=== PATIENT | male | born 1950 | race Caucasian/White ===

== ENCOUNTER 2017-07-28 19:06 | Observation (INO) | payer BC, MEDICARE ==
[~2017-07-28] VITALS: Ht 180.3 cm; Wt 99.8 kg
[~2017-07-28 19:06] MED LIST: ASPIRIN 81MG TA81 MG PO; DIOVAN HCT 12.51 TAB PO; FLOMAX 0.4MG C0.4 MG PO; GABAPENTIN300 MG PO; PLAVIX75 MG PO; TOPROL XL 50MG50 MG PO; VALSARTAN AND H1 TA1 PO; VICODIN 5/500 T1 TAB PO; VITAMIN D1000 IU PO; ZOFRAN ODT4 MG PO
[2017-07-28 19:07] VITALS: BP 175/109
[2017-07-28 19:29] LABS: LYMPH % 17.5 % (10-50)
[2017-07-28 19:36] LABS: HEMOGLOBIN 18.9 g/dL (14.1-18.0)
--- NOTE | 2017-07-28 19:49 | Emergency Room Report ---
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 does not fell the same as when he had his [place]. pain is epigastirc area, no radiation. 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 N Clinical Suspician of Infection? N Mental Status: 1 - Regular (Normal Baseline) Sepsis Risk:Low Sepsis Risk Have you (or family members/close friends) recently traveled outside the [place]? N If Yes, where/when: Have you had exposure to infectious disease within the past month? N TB? Other? Specify: Acute onset of dull, mild midepigastric pain while at rest around 3915-9814 today; lasted about ten minutes, went away, then returned for five minutes, then resolved completely. Much milder than when he had an [place] in 2009 with three stents placed at [facility]. Has been seen by Dr. Sheikh and Dr. Dangelo in the past; pt of Dr. Burgos; amenable to admission at this facility with consultation to our cardiology service if needed. No SOB. No diaphoresis. Pain nonradiating. No n/v. No calf pain. Took asa and Plavix this AM. ALLERGIES Coded Allergies: Penicillins (03/20/17) azithromycin (03/20/17) morphine (03/20/17) Home Medications Reported Medications Metoprolol Succinate Xl (Toprol Xl) 50 MG PO DAILY Clopidogrel Bisulfate (Plavix) 75 MG PO DAILY ASPIRIN (Aspirin) 81 MG PO DAILY CHOLECALCIFEROL (VITAMIN D3) (Vitamin D3) 1,000 IUNITS PO DAILY VALSARTAN/HYDROCHLOROTHIAZIDE (Valsartan-Hctz 160-12.5 MG Tab) 1 TAB PO DAILY #30 History Medical History General CAD? No Angina: No [place]: Yes Hypertension? Yes Hyperlipidemia? No CHF? No DVT? No PE? No COPD? No Asthma? No Anemia? No GERD? No Gastric ulcers? No GI Bleed? No Hernia? No Thyroid Problems? No Hypothyroidism? No CVA? Yes Seizures? No Diabetes? No Renal Insuffiency? No End Stage Renal Disease? No UTI? Yes Stones? Yes GB Disease: No Nephritic Syndrome? No Asplenia? No Hepatitis? No Sickle Cell Disease? No Arthritis? No Migraines? No Cataracts? No Glaucoma? No MRSA? No HIV? No TB? No Anxiety? No Depression? No Cancer? No More? No Immunization Hx Ped.Immunizations UTD No DT/Tetanus NOT SURE Surgical Hx Previous Surgery?Y LITHOTRYPSY BASKET EXTRACTION BACK SURGERIES X 3 Family History Family Hx Diabetes Yes CAD No Hypertension Yes Hyperlipidemia No Cancer No TB No Social History Smoking Hx Smoker: Never Smoker Tobacco: No Packs/day N/A Are you/the child exposed to second-hand smoke: No Alcohol Alcohol: No Review of Systems All Other Systems Reviewed and Negative Cardiovascular see HPI Physical Exam Vital Signs Vital Signs Date Time Temp Pulse Resp B/P Pulse O2 O2 Flow FiO2 Ox Delivery Rate 07/28 1907 98.6 67 18 175/109 94 General Appearance normal appearance, WD/WN, no apparent distress Eye Exam - bilateral eye normal exam, bilateral eye PERRL, bilateral eye EOMI Neck normal inspection, non-tender, supple, full range of motion Respiratory Status Yes: trachea midline, chest symmetrical, non tender chest. No: respiratory distress, tender on palpation, use of accessory muscles, pain on inspiration, pain on expiration, productive cough, non productive cough. Lung Sounds bilateral: normal breath sounds, lungs clear. Cardiovascular normal exam, regular rate/rhythm, no peripheral edema, no gallop, no JVD, no murmur, no rub, normal peripheral pulses Gastrointestinal normal bowel sounds, normal exam, non tender, soft, no organomegaly, no pulsatile mass, no guarding, no rebound Extremities non-tender, normal range of motion, normal inspection, normal capillary refill, no calf tenderness, no pedal edema Strength 5 Upper Ext (L), 5 Upper Ext (R), 5 Lower Ext (L), 5 Lower Ext (R) Neurologic alert, normal exam, no motor/sensory deficits, oriented x 3 Glascow Coma Scale Glascow Coma Scale Response Value EYE response: 4 Spontaneously 4 MOTOR response: 6 OBEYS 6 VERBAL response: 5 Oriented & Converses 5 Total 15 Skin intact, normal color, warm/dry Medical Decision Making LABS/Meds/Orders Pt receiving controlled substance in ED? No Results/Orders Laboratory Tests 07/28/171899: Sodium 142, Potassium 4.6, Chloride 103, Carbon Dioxide 31, BUN 17, Creatinine 1.2, Estimated Creat Clear 84, Estimated GFR (MDRD) 61, Glucose 109 H, Calcium 9.4, Creatine Kinase 53, CK-MB (CK-2) Rel Index 0.9, CK and CKMB Interp < 0.5, Troponin I < 0.02, WBC 11.4 H, RBC 6.04, Hgb 18.9 *H, Hct 56.0 H, MCV 92.7, RDW 12.9, Plt Count 224, MPV 8.0, Gran % 68.4, Gran # 7.8, Lymphocytes % 17.5, Monocytes % 8.5, Eosinophils % 4.8, Basophils % 0.8, Lymphocytes # 2.0, Monocytes # 1.0, Eosinophils # 0.6 H, Basophils # 0.1, PUBS MCHC 33.8, MCH 31.3 H Current Medication Orders Sig/Daiana Start time Last Medication Dose Route Stop Time Status Admin Sodium Chloride 10 ML PRN PRN 07/28 1945 AC IV 07/29 1939 Aspirin 324 MG ONCE ONE 07/28 1930 DC 07/28 PO 07/28 Aspirin 0 .STK-MED ONE 07/28 1918 DC .ROUTE Orders Procedure Date/time Status IV SALINE LOCK 07/28 1940 Active ELECTROCARDIOGRAM REQUEST 07/28 1916 Active CHEST-PORTABLE 07/28 1916 Active CBC WITH AUTO DIFF 07/28 1916 Complete CARDIAC ENZYMES 07/28 1916 Complete BASIC METABOLIC PROFILE 07/28 1916 Complete CM/EKG CM/EKG EKG rate, NSR, rhythm, no evid. of ischemic chgs (Nonspecific tw changes V5V6 ), no ectopy, normal QRS, normal IA, normal EKG (NSR 63 ) XRAY/CT/US XRAY/CT/US XRAY chest XR interpretation by reviewed by me Xray Results abnormal, neg acute; some calcifications Consult MD Physician Consult Time Called 1957 Reason Admission Departure Departure Time of Disposition 2003 Disposition Still a Patient Clinical Impression Primary Impression: Chest pain Qualifiers: Chest pain type: unspecified Qualified Code: R07.9 - Chest pain, unspecified Condition STABLE Referrals Wiley Burgos MD (Family) ED Critical Care Critical Care No at 2005
--- NOTE | 2017-07-28 19:49 | Emergency Room Report ---
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 does not fell the same as when he had his [place]. pain is epigastirc area, no radiation. 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 N Clinical Suspician of Infection? N Mental Status: 1 - Regular (Normal Baseline) Sepsis Risk:Low Sepsis Risk Have you (or family members/close friends) recently traveled outside the [place]? N If Yes, where/when: Have you had exposure to infectious disease within the past month? N TB? Other? Specify: Acute onset of dull, mild midepigastric pain while at rest around [id number] today; lasted about ten minutes, went away, then returned for five minutes, then resolved completely. Much milder than when he had an [place] in 2009 with three stents placed at [facility]. Has been seen by Dr. Sheikh and Dr. Dangelo in the past; pt of Dr. Burgos; amenable to admission at this facility with consultation to our cardiology service if needed. No SOB. No diaphoresis. Pain nonradiating. No n/v. No calf pain. Took asa and Plavix this AM. ALLERGIES Coded Allergies: Penicillins (03/20/17) azithromycin (03/20/17) morphine (03/20/17) Home Medications Reported Medications Metoprolol Succinate Xl (Toprol Xl) 50 MG PO DAILY Clopidogrel Bisulfate (Plavix) 75 MG PO DAILY ASPIRIN (Aspirin) 81 MG PO DAILY CHOLECALCIFEROL (VITAMIN D3) (Vitamin D3) 1,000 IUNITS PO DAILY VALSARTAN/HYDROCHLOROTHIAZIDE (Valsartan-Hctz 160-12.5 MG Tab) 1 TAB PO DAILY #30 History Medical History General CAD? No Angina: No [place]: Yes Hypertension? Yes Hyperlipidemia? No CHF? No DVT? No PE? No COPD? No Asthma? No Anemia? No GERD? No Gastric ulcers? No GI Bleed? No Hernia? No Thyroid Problems? No Hypothyroidism? No CVA? Yes Seizures? No Diabetes? No Renal Insuffiency? No End Stage Renal Disease? No UTI? Yes Stones? Yes GB Disease: No Nephritic Syndrome? No Asplenia? No Hepatitis? No Sickle Cell Disease? No Arthritis? No Migraines? No Cataracts? No Glaucoma? No MRSA? No HIV? No TB? No Anxiety? No Depression? No Cancer? No More? No Immunization Hx Ped.Immunizations UTD No DT/Tetanus NOT SURE Surgical Hx Previous Surgery?Y LITHOTRYPSY BASKET EXTRACTION BACK SURGERIES X 3 Family History Family Hx Diabetes Yes CAD No Hypertension Yes Hyperlipidemia No Cancer No TB No Social History Smoking Hx Smoker: Never Smoker Tobacco: No Packs/day N/A Are you/the child exposed to second-hand smoke: No Alcohol Alcohol: No Review of Systems All Other Systems Reviewed and Negative Cardiovascular see HPI Physical Exam Vital Signs Vital Signs Date Time Temp Pulse Resp B/P Pulse O2 O2 Flow FiO2 Ox Delivery Rate 07/28 1907 98.6 67 18 175/109 94 General Appearance normal appearance, WD/WN, no apparent distress Eye Exam - bilateral eye normal exam, bilateral eye PERRL, bilateral eye EOMI Neck normal inspection, non-tender, supple, full range of motion Respiratory Status Yes: trachea midline, chest symmetrical, non tender chest. No: respiratory distress, tender on palpation, use of accessory muscles, pain on inspiration, pain on expiration, productive cough, non productive cough. Lung Sounds bilateral: normal breath sounds, lungs clear. Cardiovascular normal exam, regular rate/rhythm, no peripheral edema, no gallop, no JVD, no murmur, no rub, normal peripheral pulses Gastrointestinal normal bowel sounds, normal exam, non tender, soft, no organomegaly, no pulsatile mass, no guarding, no rebound Extremities non-tender, normal range of motion, normal inspection, normal capillary refill, no calf tenderness, no pedal edema Strength 5 Upper Ext (L), 5 Upper Ext (R), 5 Lower Ext (L), 5 Lower Ext (R) Neurologic alert, normal exam, no motor/sensory deficits, oriented x 3 Glascow Coma Scale Glascow Coma Scale Response Value EYE response: 4 Spontaneously 4 MOTOR response: 6 OBEYS 6 VERBAL response: 5 Oriented & Converses 5 Total 15 Skin intact, normal color, warm/dry Medical Decision Making LABS/Meds/Orders Pt receiving controlled substance in ED? No Results/Orders Laboratory Tests 07/28/171899: Sodium 142, Potassium 4.6, Chloride 103, Carbon Dioxide 31, BUN 17, Creatinine 1.2, Estimated Creat Clear 84, Estimated GFR (MDRD) 61, Glucose 109 H, Calcium 9.4, Creatine Kinase 53, CK-MB (CK-2) Rel Index 0.9, CK and CKMB Interp < 0.5, Troponin I < 0.02, WBC 11.4 H, RBC 6.04, Hgb 18.9 *H, Hct 56.0 H, MCV 92.7, RDW 12.9, Plt Count 224, MPV 8.0, Gran % 68.4, Gran # 7.8, Lymphocytes % 17.5, Monocytes % 8.5, Eosinophils % 4.8, Basophils % 0.8, Lymphocytes # 2.0, Monocytes # 1.0, Eosinophils # 0.6 H, Basophils # 0.1, PUBS MCHC 33.8, MCH 31.3 H Current Medication Orders Sig/Daiana Start time Last Medication Dose Route Stop Time Status Admin Sodium Chloride 10 ML PRN PRN 07/28 1945 AC IV 07/29 1939 Aspirin 324 MG ONCE ONE 07/28 1930 DC 07/28 PO 07/28 Aspirin 0 .STK-MED ONE 07/28 1918 DC .ROUTE Orders Procedure Date/time Status IV SALINE LOCK 07/28 1940 Active ELECTROCARDIOGRAM REQUEST 07/28 1916 Active CHEST-PORTABLE 07/28 1916 Active CBC WITH AUTO DIFF 07/28 1916 Complete CARDIAC ENZYMES 07/28 1916 Complete BASIC METABOLIC PROFILE 07/28 1916 Complete CM/EKG CM/EKG EKG rate, NSR, rhythm, no evid. of ischemic chgs (Nonspecific tw changes V5V6 ), no ectopy, normal QRS, normal [place], normal EKG (NSR 63 ) XRAY/CT/US XRAY/CT/US XRAY chest XR interpretation by reviewed by me Xray Results abnormal, neg acute; some calcifications Consult MD Physician Consult Time Called 1957 Reason Admission Departure Departure Time of Disposition 2003 Disposition Still a Patient Clinical Impression Primary Impression: Chest pain Qualifiers: Chest pain type: unspecified Qualified Code: R07.9 - Chest pain, unspecified Condition STABLE Referrals Wiley Burgos MD (Family) ED Critical Care Critical Care No at 2005
[2017-07-28 19:55] LABS: BUN 17 mg/dL (7-18)
[2017-07-28 19:56] LABS: GFR (ESTIMATED) 61 ML/MIN (>60)
[2017-07-28 21:12] VITALS: BP 126/81
[2017-07-28 22:12] VITALS: BP 152/98
--- NOTE | 2017-07-28 23:10 | RADIOLOGY REPORT PS360 ---
CHEST-PORTABLE HISTORY: CHEST PAIN ORDERING PHYSICIAN: Wiley Burgos MD PATIENT AGE: 67 years COMPARISON: 12/11/2012 FINDINGS: The cardiomediastinal silhouette and pulmonary vascularity are within normal limits. The lungs are clear without infiltrates, suspicious nodules, or pleural effusions. No acute bony abnormalities. A bone plate is present over the lower cervical spine IMPRESSION: No change with no acute finding
[2017-07-28 23:57] VITALS: BP 134/93
[2017-07-29] VITALS (15 sets, daily range): BP systolic 94–135; BP diastolic 48–83
[2017-07-29 06:59] LABS: LYMPH # 1.7 K/mm3 (0.7-4.5); LYMPH % 18.1 % (10-50)
--- NOTE | 2017-07-29 07:28 | PHARMACY CLINIC NOTE ---
Patient Demographics Patient Demographics Admission date: 07/28/17 Date: 07/29/17 Time: 07 Allergies Coded Allergies: Penicillins (07/28/17) azithromycin (07/28/17) morphine (07/28/17) HEIGHT- FT: 5 IN: 11.00 K.792 VTE General Information Labs: Laboratory Tests 07/28 1900 Hematology Hgb (14.1 - 18.0 g/dL) 18.9 *H Hct (42.0 - 52.0 %) 56.0 H Plt Count (142 - 424 K/mm3) 224 Disclaimer The following section includes nursing documentation that has been pulled in for pharmacy review. Patient's VTE score: 3 Patient's VTE Risk: LOW RISK Clinical trial participant? No VTE prophylaxis [id number] VTE prophylaxis ordered? Yes Type of prophylaxis/treatment: MARIANELA at 0727
--- NOTE | 2017-07-29 07:57 | HISTORY AND PHYSICAL REPORT ---
History and Physical ([facility]) Date of admission: 07/28/17 Chief complaint: chest pain History: History of Present Illness: Mr Spears is a 67 year old male with a history of HTN, Ischemic stroke, Lumbar and cervical DD, CAD, Kidney stones, and statin induced myopthy who was brought to [facility] ER via ambulance after acute onset of dull, mild midepigastric pain while at rest around [id number] yesterday. The discomfort lasted about ten minutes, went away, then returned for five minutes, then resolved completely. The pain was much milder than when he had an [place] in 2009 with three stents placed at [facility]. He has been seen by Dr. Sheikh and Dr. Dangelo in the past. Patient denies assiciated SOB, diaphoresis, nausea/vomiting, palpitations, and radiation. He does have allergies and has a cough. He also denies leg pain. He did take his plavix and ASA this AM. Second TI was slightly elevated and he was admitted for further cardiac work-up. He was amenable to admission at this facility with consultation to our cardiology service if needed. Past Medical History: Medical History: CAD? Yes Angina: No LA: Yes Hypertension? Yes Hyperlipidemia? Yes CHF? No DVT? No PE? No COPD? No Asthma? No Anemia? No GERD? No Gastric ulcers? No GI Bleed? No Hernia? No Thyroid Problems? No Hypothyroidism? No CVA? Yes Seizures? No Diabetes? No Renal Insuffiency? No UTI? Yes Stones? Yes GB Disease: No Nephritic Syndrome? No Asplenia? No Hepatitis? No Sickle Cell Disease? No Arthritis? No Migraines? No Cataracts? No Glaucoma? No MRSA? No HIV? No TB? No Anxiety? No Depression? No Cancer? No More? No Additional hx: statin induced myopathy Surgical history: Previous Surgery?Y LITHOTRYPSY BASKET EXTRACTION BACK SURGERIES X 3 Medications: Reported Medications Metoprolol Succinate Xl (Toprol Xl) 100 MG PO DAILY VALSARTAN/HYDROCHLOROTHIAZIDE (Valsartan-Hctz 160-12.5 MG Tab) 1 TAB PO DAILY #30 TAB Clopidogrel Bisulfate (Plavix) 75 MG PO DAILY ASPIRIN (Aspirin) 81 MG PO DAILY CHOLECALCIFEROL (VITAMIN D3) (Vitamin D3) 1,000 IUNITS PO DAILY Allergies: Coded Allergies: Penicillins (07/28/17) azithromycin (07/28/17) morphine (07/28/17) Family History: Family history: Postive for: DM, HTN. Negative for: CAD. Additional family history: Father had Parkinson's; Mother had leukemia Social History: Smoking Hx Tobacco: No Smoker: Former Smoker Type: Pipe Packs/day: N/A Are you exposed to second hand No Alcohol: Alcohol: No Hx of Drug Use: Drug Use? No Patien't marital status is: Patient's support system is: excellent Review of Systems: Constitutional No: fatigue, weak. ENT No: ear ache, sore throat. Cardiovascular Positive for: chest pain. No: edema, palpitations. Respiratory Positive for: non-productive. No: shortness of air, pneumonia, productive cough (sputum). GI Positive for: abdominal pain (epigastrium). No: GERD, constipation, diarrhea, melena, nausea, vomitting. (female) No: hematuria. Neurological No: confusion, dizziness, headache, seizure, syncope. Musculoskeletal Positive for: joint pain (bilateral knees). Physical Exam: Vital signs: 1ST Vital Signs Result Date Time Pulse Ox 94 07/28 1907 B/P 175/109 07/28 1907 Temp 98.6 07/28 1907 Pulse 67 07/28 1907 Resp 18 07/28 1907 O2 Delivery ROOM AIR 07/28 2112 Exam: General appearance: alert, no acute distress, having ECHO done Eyes: anicteric ENT: mucous membranes moist, pharynx normal Neck: no carotid bruit, lymphadenopathy (absent), thyroid (normal) Cardiovascular: regular rate & rhythm Respiratory: few fine bibasilar crackles ABD: soft, no tenderness, no guarding, no organomegaly, bowel sounds present Extremities: no peripheral edema, no calf tenderness Neuro: alert, oriented, speech clear Lab data: Labs: Laboratory Tests 07/29/17 0614: Sodium 141, Potassium 3.6, Chloride 105, Carbon Dioxide 29, BUN 16, Creatinine 1.1, Estimated Creat Clear 93, Estimated GFR (MDRD) 67, Glucose 96, Calcium 8.6 07/29/17 0100: Troponin I 0.14 H 07/28/17 2204: Troponin I 0.12 H 07/28/17 1900: Sodium 142, Potassium 4.6, Chloride 103, Carbon Dioxide 31, BUN 17, Creatinine 1.2, Estimated Creat Clear 84, Estimated GFR (MDRD) 61, Glucose 109 H, Calcium 9.4, Creatine Kinase 53, CK-MB (CK-2) Rel Index 0.9, CK and CKMB Interp < 0.5, Troponin I < 0.02, WBC 11.4 H, RBC 6.04, Hgb 18.9 *H, Hct 56.0 H, MCV 92.7, RDW 12.9, Plt Count 224, MPV 8.0, Gran % 68.4, Gran # 7.8, Lymphocytes % 17.5, Monocytes % 8.5, Eosinophils % 4.8, Basophils % 0.8, Lymphocytes # 2.0, Monocytes # 1.0, Eosinophils # 0.6 H, Basophils # 0.1, PUBS MCHC 33.8, MCH 31.3 H Radiology results: Results: CXR 07/28/17 IMPRESSION: No change with no acute finding Diagnosis(es): 1. Chest pain 2. CAD (coronary artery disease) 3. History of kidney stones 4. HTN (hypertension) Plan: cardiology has been consulted for cardiac workup (Emy Seo APRN) Diagnosis(es): 1. Epigastric abdominal pain Status: Acute 2. Chest pain Status: Acute 3. CAD (coronary artery disease) Status: Chronic 4. HTN (hypertension) Status: Chronic 5. History of kidney stones Status: Chronic Plan: Patient seen and agree with above note, will add liver function and amylase/ lipase to blood in lab, no echo results yet, cardiology consultation pending. (Wiley Burgos MD) at 0757 at 0841
[2017-07-29 09:07] LABS: BILIRUBIN, INDIRECT 0.5 mg/dL (0-0.9)
--- NOTE | 2017-07-29 09:49 | CONSULT NOTE ---
Standard Demographics Patient Demo Date of Consultation: 07/29/17 Referring Provider: Wiley Burgos MD Reason for Consultation: chest pain PRIMARY DIAGNOSIS: CHEST PAIN Problem list Problem list: Non-STEMI USA CAD HTN HLD Abnormal EKG History of present illness: History of present illness: Pt presented to the ER via ambulance with CP. The patient reports that he was lying in bed when he had sudden onset of substernal pressure. this did not radiate. there were no associated symptom. pt reports having a previous DE in 2009 and the pressure startled him. he woke his up and called EMS. Pain lasted about 5 min. nothing worsened the pain. he states he had no CP prior to this. Moderate to severe in intensity. His troponin did elevate consistent with a non-STEMI. Denies fevers, chills, n/v/d, pnd or orthopnea. No SOB or edema. Past Medical History: General: Hypertension Yes CVA Yes Seizures No TB No COPD No Asthma No Diabetes No Angina No DE Yes Hyperlipidemia Yes Urinary Yes Cancer No Rheumatic H.D. No Ulcers No MRSA No GB Disease No Other HX: KIDNEY STONES X7 Additional hx statin induced myopathy Past Surgical HX: Previous Surgery?Y LITHOTRYPSY BASKET EXTRACTION BACK SURGERIES X 3 Allergies Coded Allergies: Penicillins (07/28/17) azithromycin (07/28/17) morphine (07/28/17) Home medications: Reported Medications Metoprolol Succinate Xl (Toprol Xl) 100 MG PO DAILY VALSARTAN/HYDROCHLOROTHIAZIDE (Valsartan-Hctz 160-12.5 MG Tab) 1 TAB PO DAILY #30 TAB Clopidogrel Bisulfate (Plavix) 75 MG PO DAILY ASPIRIN (Aspirin) 81 MG PO DAILY CHOLECALCIFEROL (VITAMIN D3) (Vitamin D3) 1,000 IUNITS PO DAILY Current Medications: Current Medications Aspirin 81 MG DAILY PO Clopidogrel Bisulfate 75 MG DAILY PO Metoprolol Succinate 50 MG DAILY PO Sodium Chloride 10 ML PRN PRN IV Temazepam 15 MG QHSP PRN PO Sodium Chloride 10 ML PRN PRN IV Aspirin 324 MG ONCE ONE PO (DC) Aspirin 0 .STK-MED ONE .ROUTE (DC) Immunization HX Ped.Immunizations UTD No DT/Tetanus Unknown Flu 2015-FSN Pneumonia RECEIVED IN PAST TB Test in last year No Family history Family HX Diabetes Yes CAD No Hypertension Yes Hyperlipidemia No Cancer No TB No Social Hx: Smoking HX Tobacco No Type PIPE Packs/day N/A Are you/the child exposed to second-hand smoke: No Alcohol Alcohol: No Hx of Drug Use Drug Use? No Patien't marital status is Patient's support system is good Review of systems: Constitutional No: chills, diaphoresis, fever, malaise, weakness, other. Eyes No: blindness, blurred vision, drainage, decreased acuity, foreign body sensation, inflammation, pain, photophobia, previous injury, shadows, tunnel vision, vision change, contact lenses, glasses, other. Ears, Nose, Mouth, Throat No ear pain, No ear discharge, No nose pain, No drooling/excessive saliva, No nose discharge, No nose congestion, No epistaxis, No mouth pain, No mouth swelling, No tongue swelling, No dental caries, No loose teeth, No missing teeth , No throat pain, No throat swelling, No other Respiratory No: cough, orthopnea, shortness of breath, SOB with excertion, SOB at rest, stridor, wheezing, other. Cardiovascular see HPI, chest pain, No edema, No palpitations, No syncope, No other Gastrointestinal/Abdominal No abdomen distended, No abdominal pain, No blood streaked bowels, No constipated, No diarrhea, No difficulty swallowing, No nausea, No poor appetite, No poor fluid intake, No rectal bleeding, No vomiting, No other Genitourinary No: discharge, abnormal vaginal bleeding, normal menstrual period, vaginal discharge, dysuria, frequency, hesitancy, hematuria, dyspareunia, pain, penis pain, pelvic pain, scrotal/testicular pain, hx stds, genital lesions, other, , labia tenderness, penis tenderness, scrotal tenderness. Musculoskeletal No: back pain, gout, joint pain, joint swelling, muscle pain, muscle stiffness, neck pain, other. Skin No: change in color, change in hair/nails, dryness, lesions, lumps, rash, other. Neurological No: headache, numbness, tingling, tremors, weakness, parasthesia, seizure disorder. Psychiatric No: anxious, depressed, other, withdrawn. Exam: Admission Vital Signs: 1ST Vital Signs Result Date Time Pulse Ox 94 07/28 1907 B/P 175/109 07/28 1907 Temp 98.6 07/28 1907 Pulse 67 07/28 1907 Resp 18 07/28 1907 O2 Delivery ROOM AIR 07/28 2112 Last Vital Signs: Vital Signs Result Date Time Pulse Ox 94 07/29 750 B/P 118/49 07/29 750 O2 Delivery ROOM AIR 07/29 750 Temp 98.6 07/29 750 Pulse 57 07/29 750 Resp 16 07/29 750 Exam General appearance: normal appearance, alert, active, awake, face symmetric, no acute distress, well-developed, well-nourished Eyes: normal exam, anicteric, conjunctiva clear, pupils reactive to light, PERRLA, sclera clear ENT: normal exam, mucous membranes moist, nose normal, pharynx normal Neck: normal inspection, non-tender, no carotid bruit, no JVD, full range of motion, range of motion, supple Cardiovascular: normal exam, no JVD, no ectopics, normal sinus rhythm, PMI normal, regular rate & rhythm, no murmur, normal peripheral pulses, no peripheral edema Respiratory: normal exam, aerating well, clear to auscultation, good air movement, normal breath sounds, no respiratory distress ABD: normal exam, non-distended, normal bowel sounds, no rebound, soft, no tenderness, no guarding, no organomegaly, no palpable mass Extremities: normal exam, full range of motion, moves all, normal capillary refill, no peripheral edema, femoral pulses (present), warm, pedal pulses ( present), no pedal edema Musculoskeletal: normal exam, equal muscle strength, motor intact, normal gait, sensation intact Skin: normal exam, dry, intact, normal color, no gross abnormalities, warm Neuro: normal exam, 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, 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, intact, no deficit, normal mood/affect, oriented, speech clear Laboratory data: Laboratory Tests 07/29/17 0614: Sodium 141, Potassium 3.6, Chloride 105, Carbon Dioxide 29, BUN 16, Creatinine 1.1, Estimated Creat Clear 93, Estimated GFR (MDRD) 67, Glucose 96, Calcium 8.6, WBC 9.3, RBC 5.42, Hgb 17.0, Hct 49.9, MCV 92.0, RDW 13.0, Plt Count 229, MPV 7.3 L, Gran % 69.6, Gran # 6.5, Lymphocytes % 18.1, Monocytes % 7.0, Eosinophils % 4.8, Basophils % 0.4, Lymphocytes # 1.7, Monocytes # 0.7, Eosinophils # 0.5 H, Basophils # 0.0, PUBS MCHC 33.9, MCH 31.2 07/29/17 0100: Troponin I 0.14 H 07/28/17 2204: Troponin I 0.12 H 07/28/171899: Sodium 142, Potassium 4.6, Chloride 103, Carbon Dioxide 31, BUN 17, Creatinine 1.2, Estimated Creat Clear 84, Estimated GFR (MDRD) 61, Glucose 109 H, Calcium 9.4, Creatine Kinase 53, CK-MB (CK-2) Rel Index 0.9, CK and CKMB Interp < 0.5, Troponin I < 0.02 07/28/171899: Total Bilirubin 0.6, Direct Bilirubin 0.10, Indirect Bilirubin 0.50, AST 11 L, ALT 23, Alkaline Phosphatase 92, Total Protein 6.5, Albumin 3.5, Amylase 38, Lipase 80, WBC 11.4 H, RBC 6.04, Hgb 18.9 *H, Hct 56.0 H, MCV 92.7, RDW 12.9, Plt Count 224, MPV 8.0, Gran % 68.4, Gran # 7.8, Lymphocytes % 17.5, Monocytes % 8.5, Eosinophils % 4.8, Basophils % 0.8, Lymphocytes # 2.0, Monocytes # 1.0, Eosinophils # 0.6 H, Basophils # 0.1, PUBS MCHC 33.8, MCH 31.3 H Additional information: EKG is SR with high lateral ST/TWA. Plan: Assessment: Impession List: 1. non-STEMI 2. USA 3. CAD 4. HTN 5. HLD 6. Abnormal EKG Recommendations: Plan: 1. Pt admitted with CP consistent with USA. He had an elevation in his troponin consistent with a non-STEMI. Pt has had a previous DE with stenting. Has HTN and HLD. EKG is abnormal. Will plan to proceed with LHC with R radial access to evaluate CAD. 2. Pt educated on the risks and benefits of LHC with R radial and groin access. pt verbalized understanding and is agreeable in proceeding with LHC. 3. NPO 4. CAD is present. 5. BP is well controlled. 6. LDL goal is < 70. Will get a lipid panel. 7. Echo to evaluate LV function 8. Further recommendations pending the patient's response to treatment and the results of [facility] today. Thank you for the opportunity to help participate in the care of this patient. at 0948
--- NOTE | 2017-07-29 13:17 | RADIOLOGY REPORT PS360 ---
CARDIAC CATHETERIZATION DATE OF CATHETERIZATION:07/29/2017 11:17 AM PROCEDURES: 1. Left heart catheterization 2. Left ventriculogram 3. Selective coronary angiogram 4. Drug-eluting stent deployment to the mid LAD 5. Drug-eluting stent deployment to the ramus intermedius INDICATION FOR TEST: 1. Coronary artery disease 2. Acute non-ST elevation myocardial infarction Informed consent was obtained prior to the procedure. COMPLICATIONS: None ESTIMATED BLOOD LOSS: Less than 10 ml. TECHNIQUE: One percent lidocaine used to anesthetize the right anterior aspect of the wrist. The right radial artery was accessed via the Seldinger technique. A 6 Chinese sheath was placed in the right radial artery. 2.5 mg of verapamil, 800 mcg of nitroglycerin and 5000 U Heparin were given through the arterial sheath. The trap catheter catheter was used to perform left heart catheterization left ventriculogram and selective coronary angiography. At the end of the diagnostic angiogram and additional 5000 units of heparin was administered intravenously creating an ACT out of range. An [employer] left guide catheter was used intubate the left main artery and a choice PT extra-support wire was placed into the distal LAD. A 2.25 x 26 mm resolute Daron stent was deployed at 24 marimar reducing the severe mid LAD stenosis to 0%. An additional 2.75 x 8 mm resolute Daron stent was placed proximal to this stent yet still in the mid segment and deployed at 22 marimar. IVETTE-3 flow was present down the LAD before and after the procedure. Following this an additional choice PT wire extra-support was placed in the high ramus intermedius and a 2.5 x 18 mm resolute Clifford stent deployed at 22 marimar reducing the severe stenosis to 0%. IVETTE-3 flow was present down the ramus intermedius before and after the procedure. Excellent angiographic results were obtained with no encroachment or impingement of the ostial proximal LAD. At the end of the procedure repeat ACT was measured at out of range therefore the apparatus was removed the sheath was removed good hemostasis was achieved using TR banding patient was transferred to the postop holding area in stable condition ANGIOGRAPHIC RESULTS: 1. The left main artery normal 2. The left anterior descending artery is proximally normal and then has mid vessel 30% stenoses with an additional eccentric 80% stenosis immediately after the first diagonal artery followed by an 80-90% stenosis distal to the third diagonal artery. 3. The ramus intermedius has a proximal 80 and 99% stenosis 4. The circumflex artery is nondominant yet still giving rise to a large obtuse marginal artery. This vessel has 60 and 70% mid vessel stenoses 5. The right coronary artery is a dominant vessel and has proximal 30% stenoses and a 70-80% and a 2.25 mm mid posterior descending artery which is immediately distal to the widely patent PDA stent 6. The AVILA ventriculogram reveals mild left ventricular dilatation ejection fraction 40% with anterior wall hypokinesis 7. The left ventricular end-diastolic pressure 20 mmHg IMPRESSION: 1. Coronary artery disease as described above 2. Successful drug-eluting stent deployment to the mid LAD with 2 drug-eluting stents as described above severe disease reduced to 0% 3. Successful stenting of the ostial proximal ramus intermedius severe disease which is the likely culprit for the non-STEMI reduced to 0% with 1 drug-eluting stent 4. Persistent moderate to severe disease in a large nondominant first obtuse marginal artery off the circumflex artery 5. Resistant severe disease in a relatively small posterior descending artery 6. Regional wall motion abnormality with anterior wall hypokinesis and ejection fraction of 40% 7. Mildly elevated LVEDP PLAN: 1. Aspirin Plavix 2. LDL less than 55 3. Cardiac rehabilitation 4. Avoidance of tobacco products 5. Date of therapy for systolic heart failure including ketaon inhibitors and carvedilol. Patient may benefit from low dose diuretics including Lasix and spinal lactones due to systolic heart failure and mildly elevated LVEDP
[2017-07-30] VITALS (13 sets, daily range): BP systolic 88–126; BP diastolic 46–71
--- NOTE | 2017-07-30 08:07 | ACUTE CARE PROGRESS NOTE (QUA) ---
Progress Notes Subjective Date 07/30/17 Time 0803 Note Patient feeling well today. No CP at this time. Has been up and walking, eating, and slept well. Anxious to go home. Objective Findings Last VS-Temp:98.5 B/P:114/64 Pulse:60 Resp:18 SaO2:93 OXYGEN Last weight lbs:220 oz:0 K.792 Method:Floor Scales Laboratory Tests 07/29/17 1103: POC Activ Clotting Time >400 *H 07/29/17 1049: POC Activ Clotting Time >400 *H Exam General appearance: alert, awake, no acute distress Cardiovascular: regular rate & rhythm Respiratory: clear to auscultation ABD: non-distended, normal bowel sounds, no rebound, soft, no tenderness, no guarding Extremities: no peripheral edema Assessment/Plan Problem List 1. Chest pain Status: Acute 2. Epigastric abdominal pain Status: Acute 3. CAD (coronary artery disease) Status: Chronic 4. HTN (hypertension) Status: Chronic 5. History of kidney stones Status: Chronic 6. Stented coronary artery Plan: Pt doing well after stent placement. Recommendations as per cardiology. Possible discharge home today. This inpt stay is expected to cross 2 MNs from start of care No (Margie Méndez) Assessment/Plan Problem List 1. CAD (coronary artery disease) Status: Chronic 2. Stented coronary artery Status: Acute 3. Chest pain Status: Resolved 4. Epigastric abdominal pain Status: Resolved 5. HTN (hypertension) Status: Chronic 6. History of kidney stones Status: Chronic Comments: Patient seen and agree with above note. Patient has a history of MIGUEL induced cough with Benazepril and profound muscle weakness/elevated CPK with multiple statins. Will likely be able to discharge today. (Wiley Burgos MD) at 0807 at 0849
--- NOTE | 2017-07-30 09:57 | DISCHARGE SUMMARY STANDARD ---
Discharge Summary (FCA2) Date of admission: 07/28/17 Date of discharge: 07/30/17 Problem List: 1. CAD (coronary artery disease) 2. Stented coronary artery 3. Chest pain 4. Epigastric abdominal pain 5. HTN (hypertension) 6. History of kidney stones History of present illness: Mr Spears is a 67 year old male with a history of HTN, Ischemic stroke, Lumbar and cervical DD, CAD, Kidney stones, and statin induced myopthy who was brought to [facility] ER via ambulance after acute onset of dull, mild midepigastric pain while at rest around [id number] yesterday. The discomfort lasted about ten minutes, went away, then returned for five minutes, then resolved completely. The pain was much milder than when he had an ID in 2009 with three stents placed at [facility]. He has been seen by Dr. Sheikh and Dr. Dangelo in the past. Patient denies associated SOB, diaphoresis, nausea/vomiting, palpitations, and radiation. He does have allergies and has a cough. He also denies leg pain. He did take his plavix and ASA the am of admission. Second TI was slightly elevated and he was admitted for further cardiac work-up. He was amenable to admission at this facility with consultation to our cardiology service if needed. Exam on admission: General appearance: alert, no acute distress, having ECHO done Eyes: anicteric ENT: mucous membranes moist, pharynx normal Neck: no carotid bruit, lymphadenopathy (absent), thyroid (normal) Cardiovascular: regular rate & rhythm Respiratory: few fine bibasilar crackles ABD: soft, no tenderness, no guarding, no organomegaly, bowel sounds present Extremities: no peripheral edema, no calf tenderness Neuro: alert, oriented, speech clear Hospital Course: The patient was seen in consultation by cardiology. He had an elevation in his troponin consistent with a non-STEMI. His EKG was abnormal. He was taken for a heart cath and received 3 stents, two in the mid LAD and one in the stial proximal ramus intermedius. He had an EF of 40% with anterior wall hypokinesis and a mildly elevated LVEDP. Cardiology recommends keeping him on ASA and plavix, starting cardiac rehab, avoiding tobacco, getting his LDL less than 55, and starting an ACEI and coreg. They also felt he may benefit from low dose diuretics due to systolic heart failure. The patient has a history of MIGUEL induced cough with Benazepril and profound muscle weakness/elevated CPK with multiple statins. He will be discharged on an ARB. Discharge medications: Stop taking the following medications: VALSARTAN/HYDROCHLOROTHIAZIDE (Valsartan-Hctz 160-12.5 MG Tab) 1 EACH TABLET ORAL DAILY Qty = 30 Continue taking these medications: Metoprolol Succinate Xl (Toprol Xl) 50 MG TAB.ER.24H 100 MILLIGRAM ORAL DAILY Clopidogrel Bisulfate (Plavix) 75 MG TAB 75 MILLIGRAM ORAL DAILY ASPIRIN (Aspirin) 81 MG TAB.CHEW 81 MILLIGRAM ORAL DAILY CHOLECALCIFEROL (VITAMIN D3) (Vitamin D3) 1,000 UNIT TABLET 1,000 INT. UNITS ORAL DAILY Start taking the following new medications: Valsartan (Diovan) 80 MG TABLET 80 MILLIGRAM ORAL TWICE A DAY Qty = 60 Refills = 5 Disposition: F/U with: Yassine Awan MD Follow up: 7 DAYS Comments, Specifics r/t O2, Equipment, Antibiotics, etc: Patient needs referral for Cardiac rehab, off work for the next 2 weeks Activity: Cont Current activity Diet: Continue same diet Discharge to: HOME Agency needed? N (Margie Méndez) Problem List: 1. CAD (coronary artery disease) 2. Stented coronary artery 3. Chest pain 4. Epigastric abdominal pain 5. HTN (hypertension) 6. History of kidney stones Disposition: F/U with Dr. Awan in [address] Burgos in 2 weeks. Lower dose of ARB used due to decreased EF at time of heart cath. May need diuretic in the future , but not now due to BP being borderline low. (Aubrey LUNDBERG,Wiley) at 1405
--- NOTE | 2017-07-30 09:57 | DISCHARGE SUMMARY STANDARD ---
Discharge Summary (FCA2) Date of admission: 07/28/17 Date of discharge: 07/30/17 Problem List: 1. CAD (coronary artery disease) 2. Stented coronary artery 3. Chest pain 4. Epigastric abdominal pain 5. HTN (hypertension) 6. History of kidney stones History of present illness: Mr Spears is a 67 year old male with a history of HTN, Ischemic stroke, Lumbar and cervical DD, CAD, Kidney stones, and statin induced myopthy who was brought to [facility] ER via ambulance after acute onset of dull, mild midepigastric pain while at rest around [id number] yesterday. The discomfort lasted about ten minutes, went away, then returned for five minutes, then resolved completely. The pain was much milder than when he had an KS in 2009 with three stents placed at [facility]. He has been seen by Dr. Sheikh and Dr. Dangelo in the past. Patient denies associated SOB, diaphoresis, nausea/vomiting, palpitations, and radiation. He does have allergies and has a cough. He also denies leg pain. He did take his plavix and ASA the am of admission. Second TI was slightly elevated and he was admitted for further cardiac work-up. He was amenable to admission at this facility with consultation to our cardiology service if needed. Exam on admission: General appearance: alert, no acute distress, having ECHO done Eyes: anicteric ENT: mucous membranes moist, pharynx normal Neck: no carotid bruit, lymphadenopathy (absent), thyroid (normal) Cardiovascular: regular rate & rhythm Respiratory: few fine bibasilar crackles ABD: soft, no tenderness, no guarding, no organomegaly, bowel sounds present Extremities: no peripheral edema, no calf tenderness Neuro: alert, oriented, speech clear Hospital Course: The patient was seen in consultation by cardiology. He had an elevation in his troponin consistent with a non-STEMI. His EKG was abnormal. He was taken for a heart cath and received 3 stents, two in the mid LAD and one in the stial proximal ramus intermedius. He had an EF of 40% with anterior wall hypokinesis and a mildly elevated LVEDP. Cardiology recommends keeping him on ASA and plavix, starting cardiac rehab, avoiding tobacco, getting his LDL less than 55, and starting an ACEI and coreg. They also felt he may benefit from low dose diuretics due to systolic heart failure. The patient has a history of MIGUEL induced cough with Benazepril and profound muscle weakness/elevated CPK with multiple statins. He will be discharged on an ARB. Discharge medications: Stop taking the following medications: VALSARTAN/HYDROCHLOROTHIAZIDE (Valsartan-Hctz 160-12.5 MG Tab) 1 EACH TABLET ORAL DAILY Qty = 30 Continue taking these medications: Metoprolol Succinate Xl (Toprol Xl) 50 MG TAB.ER.24H 100 MILLIGRAM ORAL DAILY Clopidogrel Bisulfate (Plavix) 75 MG TAB 75 MILLIGRAM ORAL DAILY ASPIRIN (Aspirin) 81 MG TAB.CHEW 81 MILLIGRAM ORAL DAILY CHOLECALCIFEROL (VITAMIN D3) (Vitamin D3) 1,000 UNIT TABLET 1,000 INT. UNITS ORAL DAILY Start taking the following new medications: Valsartan (Diovan) 80 MG TABLET 80 MILLIGRAM ORAL TWICE A DAY Qty = 60 Refills = 5 Disposition: F/U with: Yassine Awan MD Follow up: 7 DAYS Comments, Specifics r/t O2, Equipment, Antibiotics, etc: Patient needs referral for Cardiac rehab, off work for the next 2 weeks Activity: Cont Current activity Diet: Continue same diet Discharge to: HOME Agency needed? N (Margie Méndez) Problem List: 1. CAD (coronary artery disease) 2. Stented coronary artery 3. Chest pain 4. Epigastric abdominal pain 5. HTN (hypertension) 6. History of kidney stones Disposition: F/U with Dr. Awan in [address] Burgos in 2 weeks. Lower dose of ARB used due to decreased EF at time of heart cath. May need diuretic in the future , but not now due to BP being borderline low. (Aubrey LUNDBERG,Wiley) at 1405
[2017-07-30] MEDS ORDERED: DIOVAN80 MG PO (13:42)
--- NOTE | 2017-07-30 18:27 | RADIOLOGY REPORT PS360 ---
PROCEDURE: 2-D M-mode and color Doppler study INDICATIONS FOR THE TEST: Chest pain+ COPD Heart Murmur Tobacco Smoking Palpitations Fatigue Syncope Edema Hypertension+Diabetes Mellitus Rheumatic Fever SOB SANTO Obesity Hyperlipidemia+ Family History HD Additional History OLD OH, OLD CVA, 3 STENTS PATIENT INFORMATION HEIGHT: 71 WEIGHT:215 GENDER: Male B/P: 2-D/M-MODE INTERPRETATION: 2-D MEASUREMENTS OBSERVED VALUES IN CMS Right Ventricular Dimension (RVDd) 2.5 Interventricular Septum (Thickness)(IVsd) 1.2 Left Ventricular Internal Dimensions(LVIDd) 5.6 Left Ventricular Posterior Wall (Thickness)(LV 1.0 Aortic Root 3.4 Aortic Cusp Separation 2.2 Left Atrial Dimensions (LAD) 4.1 2D 1. The left atrium is mildly enlarged, left ventricle is normal size, there is mild concentric left ventricular hypertrophy, visually estimated ejection fraction approximately 40%, there is marked hypokinesis involving the inferior, inferobasal and inferolateral wall. 2. The right atrium and right ventricle are relatively normal size and function. 3. The aortic valve is minimally thickened and calcified. 4. The mitral valve has mitral calcification there is no mitral stenosis. 5. The tricuspid valve is grossly normal. 6. The pulmonic valve is poorly visualized. 7. No significant pericardial effusion noted. DOPPLER INTERROGATION: Doppler interrogation of the aortic, mitral and tricuspid valvular presence of mild mitral and tricuspid regurgitation, grade 1 diastolic dysfunction seen with tissue Doppler evidence of raised left atrial pressure. Tricuspid regurgitant jet velocity insufficient for calculation of the right ventricular systolic pressure. CONCLUSION: 1. Mildly enlarged left atrium, normal left ventricular size, mild concentric left ventricular hypertrophy, visually estimated ejection fraction approximately 40% with multiple segmental wall motion abnormality described above, grade 1 diastolic dysfunction seen with tissue Doppler evidence of raised left atrial pressure. 2. Mild mitral and tricuspid regurgitation. 3. No significant pericardial effusion noted.
--- OUTSIDE RECORDS SUMMARY | 2017-08-01 07:08 | External Medical Summary Rpt | CCD ---
Author Author , EULA FORDE Address Unknown Phone [email or web address] Support Name Relationship Address Phone KWADWO, Next Of Kin Meka [place] [address], [phone] [place] [address] Purpose Continuity of Care Document - 03-29-2012 through 2016 Problems Code Diagnosis DOS Provider Status N20.0 CALCULUS OF KIDNEY N28.89 OTHER SPECIFIED DISORDERS OF KIDNEY AND URETER Allergies, Adverse Reactions, Alerts Type Drug Allergy Adverse Reaction to Substance Substance Reaction Severity Penicillin Unknown Unknown Morphine NA-NAUSEA/VOMITING Intermediate Azithromycin Unknown Unknown Medications Na ND Rx Da Fi Fi Am Da Di Ph RX Ph St me C No te ll ll ou ys ag ar # ys at rm s nt no ma ic us Or Da si cy ia de te s n re d SO 00 02 0 No DI 40 -2 UM 97 3- Lo 98 20 ng CH 30 13 er LO 3 RI Ac DE ti ve 0. 9% SO ELIER TI ON Sa 63 02 0 No li 80 -2 ne 70 3- Lo 10 20 ng Fl 07 13 er us 5 h Ac 10 ti ML ve Sy ri ng e Vital Signs 12-11-2012 18:05 Name Value Interpretat Reference Comment ion Range Body 98.1 [degF] Temperature BP 75 mm[Hg] Diastolic BP Systolic 120 mm[Hg] Heart 71 /min Rate/Pulse O2% 95 % Respiratory 18 /min Rate 12-11-2012 16:13 Name Value Interpretat Reference Comment ion Range BP 62 mm[Hg] Diastolic BP Systolic 109 mm[Hg] Heart 72 /min Rate/Pulse O2% 97 % Respiratory 20 /min Rate Results Labs Lab Lab Date Result Refere Interp Status Commen Order Detail nces retati t Range on COMPREHENSIVE METABOLIC PANEL (12-11-2012 15:35) Glucose 100 74-106 complet 013 mg/dL ed Bld-mCn 15:35 c BUN 25 7-18 complet Bld-mCn 013 mg/dL ed c 15:35 Creat 02-23-2 1.6 0.8-1.3 complet SerPl-m 013 mg/dL ed Cnc 15:35 ESTIMAT 12-11-2 70 50-200 complet ED 013 ML/MIN ed CREATIN 15:35 INE CLEARAN CE GFR 12-11-2 44 Greater complet (ESTIMA 013 ML/MIN than ed MARIANELA) 15:35 60 Sodium 23-2 138 136-145 complet SerPl-s 013 mmoL/L ed Cnc 15:35 Potassi 12-11-2 3.4 3.5-5.1 complet um 013 mmoL/L ed SerPl-s 15:35 Cnc Chlorid 12-11- 101 98-107 complet e 013 mmoL/L ed SerPl-s 15:35 Cnc CO2 12-11-2 30 21.0-32 complet SerPl-s 013 mmoL/L .0 ed Cnc 15:35 Calcium 12-11-2 8.8 8.5-10. complet 013 mg/dL 1 ed SerPl-m 15:35 Cnc Prot 12-11-2 7.2 6.4-8.2 complet SerPl-m 013 gm/dL ed Cnc 15:35 Albumin 12-11-2 3.4 3.4-5.0 complet 013 gm/dL ed SerPl-m 15:35 Cnc Globuli 12-11-2 3.8 1.3-3.2 complet n 013 gm/dL ed Ser-mCn 15:35 c Albumin 12-11-2 0.9 UNK 1.1-1.8 complet /Glob 013 ed SerPl-m 15:35 Rto Bilirub 12-11-2 1.0 0.2-1.0 complet 013 mg/dL ed SerPl-m 15:35 Cnc AST 12-11-2 13 U/L 15-37 complet SerPl-c 013 ed Cnc 15:35 ALT 12-11-2 30 U/L 30-65 complet SerPl-c 013 ed Cnc 15:35 ALP 23-2 83 U/L 50-136 complet SerPl-c 013 ed Cnc 15:35 CBC with AUTO DIFF (12-11-2012 15:35) WBC # 02-23-2 11.2 4.8-10. complet Bld 013 K/MM3 8 ed Auto 15:35 RBC # 02-23-2 5.66 4.6-6.2 complet Bld 013 M/mm3 ed Auto 15:35 Hgb 02-23-2 18.0 14.1-18 complet Bld-mCn 013 g/dL .0 ed c 15:35 Hct Fr 02-23-2 53.8 % 42.0-52 complet Bld 013 .0 ed 15:35 MCV RBC 02-23-2 95.0 fl 82.2-97 complet 013 .8 ed 15:35 MCH RBC 02-23-2 31.8 pg 27-31.2 complet Qn 013 ed Auto 15:35 MEAN 02-23-2 33.5 31.8-35 complet CORPUSC 013 g/dl .4 ed ULAR 15:35 HGB CONC RDW RBC 02-23-2 13.3 % 11.5-17 complet Auto 013 .5 ed 15:35 Platele 02-23-2 269 142-424 complet t Bld 013 K/mm3 ed Ql 15:35 Manual MEAN 02-23-2 7.6 fl 7.4-10. complet PLATELE 013 4 ed T 15:35 VOLUME Granulo 02-23-2 73.3 % 37.0-80 complet cytes 013 .0 ed Fr Bld 15:35 Auto LYMPH % 02-23-2 17.1 % 10-50 complet 013 ed 15:35 Monocyt 02-23-2 7.5 % 1.7-9.3 complet es Fr 013 ed Bld 15:35 Auto Eosinop 02-23-2 1.8 % 0.1-12. complet hil Fr 013 0 ed Bld 15:35 Auto Basophi 02-23-2 0.3 % 0.1-2.0 complet ls Fr 013 ed Bld 15:35 Auto Granulo 02-23-2 8.2 1.3-8.0 complet cytes # 013 K/mm3 ed Bld 15:35 Auto Lymphoc 02-23-2 1.9 0.7-4.5 complet ytes Fr 013 K/mm3 ed Bld 15:35 Auto Monocyt 02-23-2 0.8 0.1-1.0 complet es # 013 K/mm3 ed Bld 15:35 Auto Eosinop 02-23-2 0.2 0.0-0.4 complet hil # 013 K/mm3 ed Bld 15:35 Auto Basophi 02-23-2 0.0 0-0.2 complet # 013 K/MM3 ed Bld 15:35 Auto Encounters Encounter Start End Date Code Location Performer Type Date Emergency MONAE MARTINEZ (ER) 3 15:46 3 18:07 [facility]
--- OUTSIDE RECORDS SUMMARY | 2017-08-01 07:08 | External Medical Summary Rpt | CCD ---
Author Author , EULA FORDE Address Unknown Phone [email or web address] Name Relationship Address Phone KWADWO, Next Of Kin Meka [place] [address], [phone] [place] [address] Purpose Continuity of Care Document - 03-29-2012 [...] MONAE MARTINEZ (ER) 3 15:46 3 18:07 [facility]
--- OUTSIDE RECORDS SUMMARY | 2017-08-01 07:08 | External Medical Summary Rpt | CCD ---
Author Author , EULA Organization EULA Address Unknown Phone [email or web address] Immunization Name Date Rout CVX Reac Dose Comm Prov Is Faci e tion ent ider Refu lity Give sed n Td 03-0 9 999 Hist H149 No H149 (brielle 5-19 oric lt), 97 al Info adso rmat rbed ion - Sour ce Unsp ecif ied
--- OUTSIDE RECORDS SUMMARY | 2017-08-01 07:08 | External Medical Summary Rpt | CCD ---
Author Author , EULA Organization EULA Address Unknown Phone [email or web address] Immunization Name Date Rout CVX Reac Dose Comm Prov Is Faci e tion ent ider Refu lity Give sed n Td 03-0 9 999 Hist H149 No H149 (brielle 5-19 oric lt), 97 al Info adso rmat rbed ion - Sour ce Unsp ecif ied
--- OUTSIDE RECORDS SUMMARY | 2017-08-01 07:09 | External Medical Summary Rpt ---
Author Author EULA Production, EULA Production Organization [employer] Address Unknown Phone Unavailable Results CBC W Auto Differential panel in Blood Observa Value Referen Units Interpr Notes Date tion ce etation Range Basophils 0 - 0.2 K/MM3 Normal No Jul 28 informati 2016 7:00 [#/volume on in PM ] in source Blood by data Automated count Basophils 0.1 - 2.0 % Normal No Jul 28 / informati 2017 7:00 leukocyte on in PM s in source Blood by data Automated count Eosinophi 0.0 - 0.4 K/mm3 High No Jul 28 ls informati 2016 7:00 [#/volume on in PM ] in source Blood by data Automated count Eosinophi 0.1 - % Normal No Jul 28 ls/100 12.0 informati 2016 7:00 leukocyte on in PM s in source Blood by data Automated count Granulocy 1.3 - 8.0 K/mm3 Normal No Jul 28 [place] informati 2017 7:00 [#/volume on in PM ] in source Blood by data Automated count Granulocy 37.0 - % Normal No Jul 28 [place]/100 80.0 informati 2016 7:00 leukocyte on in PM s in source Blood by data Automated count Hematocri 42.0 - % High No Jul 28 t [Volume 52.0 informati 2017 7:00 on in PM Fraction] source of Blood data Hemoglobi 14.1 - g/dL High No Jul 28 n 18.0 alert informati 2017 7:00 [Mass/vol on in PM ume] in source Blood data Lymphocyt 0.7 - 4.5 K/mm3 Normal No Jul 28 es informati 2016 7:00 [#/volume on in PM ] in source Unspecifi data ed specimen by Automated count Lymphocyt 10 - 50 % Normal No Jul 28 es informati 2016 7:00 [#/volume on in PM ] in source Unspecifi data ed specimen by Automated count Erythrocy 27 - 31.2 pg High No Jul 28 te mean informati 2016 7:00 corpuscul on in PM ar source hemoglobi data n [Entitic mass] Erythrocy 31.8 - g/dl Normal No Jul 28 te mean 35.4 informati 2016 7:00 corpuscul on in PM ar source hemoglobi data n concentra tion [Mass/vol ume] by Automated count Erythrocy 82.2 - fl Normal No Jul 10 te mean 97.8 informati 2016 7:00 corpuscul on in PM ar volume source [Entitic data volume] by Automated count Monocytes 0.1 - 1.0 K/mm3 Normal No Jul 10 informati 2016 7:00 [#/volume on in PM ] in source Blood by data Automated count Monocytes 1.7 - 9.3 % Normal No Jul 10 /100 informati 2016 7:00 leukocyte on in PM s in source Blood by data Automated count Platelet 7.4 - fl Normal No Jul 28 mean 10.4 informati 2016 7:00 volume on in PM [Entitic source volume] data in Blood by Automated count Platelets 142 - 424 K/mm3 Normal No Jul 10 informati 2016 7:00 [#/volume on in PM ] in source Blood data Erythrocy 4.6 - 6.2 M/mm3 Normal No Jul 10 [place] informati 2016 7:00 [#/volume on in PM ] in source Amniotic data fluid Erythrocy 11.5 - % Normal No Jul 10 te 17.5 informati 2016 7:00 distribut on in PM ion width source [Entitic data volume] by Automated count Leukocyte 4.8 - K/MM3 High No Jul 10 s 10.8 informati 2016 7:00 [#/volume on in PM ] in source Blood data Comprehensive metabolic 2000 panel in Serum or Plasma Observa Value Referen Units Interpr Notes Date tion ce etation Range Albumin/G 1.1 - 1.8 No Normal No Isiah 2 lobulin informati informati 2016 8:50 [Mass on in on in AM ratio] in source source Serum or data data Plasma Albumin 3.4 - 5.0 gm/dL Normal No Isiah 2 [Mass/vol informati 2016 8:50 ume] in on in AM Serum or source Plasma data Alkaline 46 - 116 U/L Normal No Isiah 2 phosphata informati 2016 8:50 se on in AM [Enzymati source c data activity/ volume] in Serum or Plasma Bilirubin 0.2 - 1.0 mg/dL Normal No Isiah 2 .total informati 2017 8:50 [Mass/vol on in AM ume] in source Serum or data Plasma Urea 7 - 18 mg/dL High No Isiah 2 nitrogen informati 2017 8:50 [Mass/vol on in AM ume] in source Serum or data Plasma Calcium 8.5 - mg/dL Normal No Isiah 2 [Mass/vol 10.1 informati 2017 8:50 ume] in on in AM Serum or source Plasma data Chloride 98 - 107 mmoL/L Normal No Isiah 2 [Moles/vo informati 2017 8:50 lume] in on in AM Serum or source Plasma data Carbon 21.0 - mmoL/L Normal No Isiah 2 dioxide, 32.0 informati 2017 8:50 total on in AM [Moles/vo source lume] in data Serum or Plasma Creatinin 0.70 - mg/dL High No Isiah 2 e 1.30 informati 2017 8:50 [Mass/vol on in AM ume] in source Serum or data Plasma Creatinin 50 - 200 ML/MIN Normal No Isiah 2 e renal informati 2017 8:50 clearance on in AM source predicted data by Cockcroft -Gault formula Estimated >60 ML/MIN No REFERENCE Isiah 2 informati RANGE: 2017 8:50 glomerula on in >60 AM r source ML/MIN/1. filtratio data 73 SQUARE n rate METERSIf (GF this patient is -A merican, then multiply theresult by 1.210. Globulin 1.3 - 3.2 gm/dL High No Isiah 2 [Mass/vol informati 2017 8:50 ume] in on in AM Serum source data Glucose 74 - 106 mg/dL High No Isiah 2 [Mass/vol informati 2017 8:50 ume] in on in AM Serum or source Plasma data Potassium 3.5 - 5.1 mmoL/L Normal No Isiah 2 informati 2017 8:50 [Moles/vo on in AM lume] in source Serum or data Plasma Sodium 136 - 145 mmoL/L Normal No Isiah 2 [Moles/vo informati 2017 8:50 lume] in on in AM Serum or source Plasma data Aspartate 15 - 37 U/L Low No Isiah 2 informati 2017 8:50 aminotran on in AM sferase source [Enzymati data c activity/ volume] in Serum or Plasma Alanine 12 - 78 U/L Normal No Isiah 2 aminotran informati 2017 8:50 sferase on in AM [Enzymati source c data activity/ volume] in Serum or Plasma Protein 6.4 - 8.2 gm/dL Normal No Isiah 2 [Mass/vol informati 2016 8:50 ume] in on in AM Serum or source Plasma data Lipase [Enzymatic activity/volume] in Serum or Plasma Observa Value Referen Units Interpr Notes Date tion ce etation Range Lipase 73 - 393 U/L Normal No Isiah 2 [Enzymati informati 2016 8:50 c on in AM activity/ source volume] data in Serum or Plasma CBC W Auto Differential panel in Blood Observa Value Referen Units Interpr Notes Date tion ce etation Range Basophils 0 - 0.2 K/MM3 Normal No Isiah 2 informati 2016 8:50 [#/volume on in AM ] in source Blood by data Automated count Basophils 0.1 - 2.0 % Normal No Isiah 2 /100 informati 2017 8:50 leukocyte on in AM s in source Blood by data Automated count Eosinophi 0.0 - 0.4 K/mm3 Normal No Isiah 2 ls informati 2016 8:50 [#/volume on in AM ] in source Blood by data Automated count Eosinophi 0.1 - % Normal No Isiah 2 ls/100 12.0 informati 2017 8:50 leukocyte on in AM s in source Blood by data Automated count Granulocy 1.3 - 8.0 K/mm3 High No Isiah 2 [place]in informati 2017 8:50 [#/volume on in AM ] in source Blood by data Automated count Granulocy 37.0 - % High No Isiah 2 [place]in/100 80.0 informati 2016 8:50 leukocyte on in AM s in source Blood by data Automated count Hematocri 42.0 - % High No Mar 2 t [Volume 52.0 informati 2017 8:50 on in AM Fraction] source of Blood data Hemoglobi 14.1 - g/dL High No Mar 2 n 18.0 alert informati 2017 8:50 [Mass/vol on in AM ume] in source Blood data Lymphocyt 0.7 - 4.5 K/mm3 Normal No Isiah 2 es informati 2016 8:50 [#/volume on in AM ] in source Unspecifi data ed specimen by Automated count Lymphocyt 10 - 50 % Low No Mar 2 es informati 2016 8:50 [#/volume on in AM ] in source Unspecifi data ed specimen by Automated count Erythrocy 27 - 31.2 pg High No Isiah 2 te mean informati 2016 8:50 corpuscul on in AM ar source hemoglobi data n [Entitic mass] Erythrocy 31.8 - g/dl Normal No Isiah 2 te mean 35.4 informati 2017 8:50 corpuscul on in AM ar source hemoglobi data n concentra tion [Mass/vol ume] by Automated count Erythrocy 82.2 - fl Normal No Isiah 2 te mean 97.8 informati 2016 8:50 corpuscul on in AM ar volume source [Entitic data volume] by Automated count Monocytes 0.1 - 1.0 K/mm3 Normal No Isiah 2 informati 2017 8:50 [#/volume on in AM ] in source Blood by data Automated count Monocytes 1.7 - 9.3 % Normal No Isiah 2 /100 informati 2017 8:50 leukocyte on in AM s in source Blood by data Automated count Platelet 7.4 - fl Low No Isiah 2 mean 10.4 informati 2016 8:50 volume on in AM [Entitic source volume] data in Blood by Automated count Platelets 142 - 424 K/mm3 Normal No Isiah 2 informati 2017 8:50 [#/volume on in AM ] in source Blood data Erythrocy 4.6 - 6.2 M/mm3 Normal No Isiah 2 [place] informati 2017 8:50 [#/volume on in AM ] in source Amniotic data fluid Erythrocy 11.5 - % Normal No Isiah 2 te 17.5 informati 2016 8:50 distribut on in AM ion width source [Entitic data volume] by Automated count Leukocyte 4.8 - K/MM3 High No Isiah 2 s 10.8 informati 2016 8:50 [#/volume on in AM ] in source Blood data XR CHEST AP PORTABLE Observa Value Referen Units Interpr Notes Date tion ce etation Range \.br\XR No No No No May 24 CHEST informa informa informa informa 2015 AP tion in tion in tion in tion in 6:47 PM PORTABL source source source source E data data data data 6 6:47 PM\.br\ \.br\CL INICAL: -DIZZIN ESS\.br \\.br\C OMPARIS ON: 03/29/20 12\.br\ \.br\FI NDINGS: The cardiop ericard ial silhoue tte and mediast inum are within\ .br\nor mal\.br \limits . The lungs are clear.\ .br\\.b r\IMPRE SSION: No acute disease . Support \.br\ Auto Diff Observa Value Referen Units Interpr Notes Date tion ce etation Range Neutrop 85.6 No % No No May 6 hils informa informa informa 2016 [#/volu tion in tion in tion in 6:38 PM me] in source source source Blood data data data by Automat ed count Lymphoc 7.7 No % No No May 6 ytes informa informa informa 2016 [#/volu tion in tion in tion in 6:38 PM me] in source source source Blood data data data by Automat ed count Monocyt 4.4 No % No No May 6 es informa informa informa 2016 [#/volu tion in tion in tion in 6:38 PM me] in source source source Blood data data data by Automat ed count Eos 2.0 No % No No May 6 Percent informa informa informa 2016 tion in tion in tion in 6:38 PM source source source data data data Baso 0.3 No % No No May 6 Percent informa informa informa 2016 tion in tion in tion in 6:38 PM source source source data data data Neut# 9.9 1.8 - x10(3)/ High No May 6 7.7 mcL informa 2016 tion in 6:38 PM source data Lymph# 0.9 0.6 - x10(3)/ No No May 6 4.8 mcL informa informa 2016 tion in tion in 6:38 PM source source data data [place]# 0.5 0.0 - x10(3)/ No No May 6 1.3 mcL informa informa 2016 tion in tion in 6:38 PM source source data data Eos# 0.2 0.0 - x10(3)/ No No May 6 0.5 mcL informa informa 2016 tion in tion in 6:38 PM source source data data Baso# 0.0 0.0 - x10(3)/ No No May 24 0.2 mcL informa informa 2016 tion in tion in 6:38 PM source source data data CBC Observa Value Referen Units Interpr Notes Date tion ce etation Range LEUKOCY 11.6 4.0 - x10(3)/ High No May 6 [place] 11.0 mcL informa 2016 tion in 6:38 PM source data Erythro 5.57 4.30 - x10(6)/ No No May 24 cytes 5.81 mcL informa informa 2016 [#/volu tion in tion in 6:38 PM me] in source source Blood data data by Automat ed count Hemoglo 17.4 13.5 - gm/dL High No May 24 bin 17.1 informa 2016 [Mass/v tion in 6:38 PM olume] source in data Blood Hematoc 51.6 38.9 - % No No May 24 rit 51.6 informa informa 2016 [Volume tion in tion in 6:38 PM source source Fractio data data n] of Blood by Automat ed count Erythro 92.7 82.5 - fL No No May 24 cyte 99.8 informa informa 2016 mean tion in tion in 6:38 PM corpusc source source ular data data volume [Entiti c volume] by Automat ed count Erythro 31.2 27.0 - pg No No May 24 cyte 34.3 informa informa 2016 mean tion in tion in 6:38 PM corpusc source source ular data data hemoglo bin [Entiti c mass] by Automat ed count Erythro 33.7 32.1 - gm/dL No No May 24 cyte 35.3 informa informa 2016 mean tion in tion in 6:38 PM corpusc source source ular data data hemoglo bin concent ration [Mass/v olume] by Automat ed count Erythro 12.9 11.5 - % No No May 24 cyte 15.0 informa informa 2016 distrib tion in tion in 6:38 PM ution source source width data data [Ratio] by Automat ed count Platele 222 144 - x10(3)/ No No May 6 ts 423 mcL informa informa 2016 [#/volu tion in tion in 6:38 PM me] in source source Blood data data by Automat ed count MPV 7.9 6.8 - fL No No May 24 10.8 informa informa 2015 tion in ti in 6:38 PM source source data data EK EKG 12 LEAD Observa Value Referen Units Interpr Notes Date ti ce etation Range Station No No No No May 24 kirill ECG informa informa informa informa 2015 tion in ti in tion in ti in 6:01 PM Study\. source source source source br\St. data data data data Elizabe th [employer] d\.br\I nterpre tive Stateme nts\.br \SINUS RHYTHM\ .br\No prior studies availab le for compari son\.br \normal ECG\.br \Electr onicall y Signed On 20:12:2 1 EDT by Jordon Salguero MD EK EKG 12 LEAD Observa Value Referen Units Interpr Notes Date ti ce etation Range Sinus No No No No Mar 30 rhythmR informa informa informa informa 2011 ight tion in ti in ti in in 6:04 AM axis source source source source deviati data data data data onPossi ble inferio r infarct - age undeter minedNo signifi cant change from earlier record other than absence of ectopyA bnormal ECG EK EKG 12 LEAD Observa Value Referen Units Interpr Notes Date ti ce etation Range Sinus No No No No Mar 29 tachyca informa informa informa informa 2012 rdia tion in ti in ti in in 3:06 PM with source source source source frequen data data data data t PVCs.Ri ght axis deviati onPossi ble inferio r infarct - age undeter minedPo ssible lateral infarct - age undeter minedsi milar to prior tracing other than present ectopyA bnormal ECG XR CHEST AP PORTABLE Observa Value Referen Units Interpr Notes Date ti ce etation Range TEXT XR No No No No Mar 29 DIAGNOS CHEST informa informa informa informa 2012 IS AP tion in tion in tion in tion in 1:45 PM BATTERY PORTABL source source source source data data data data 012, 1332 hoursCl inical: 62-year -old male. PainSin gle frontal view shows clear lungs. Heart size is normal. IMPRESS ION: No acute cardiop ulmonar y disease . EK EKG 12 LEAD Observa Value Referen Units Interpr Notes Date tion ce etation Range Sinus No No No No Isiah 11 tachyca informa informa informa informa 2011 rdiaSev tion in tion in tion in tion in 1:36 PM ere source source source source right data data data data axis deviati onpossi ble inferio r infarct - age undeter minedPo ssible lateral infarct - age undeter minedLo w QRS voltage s in limb leadsAb normal ECG
--- OUTSIDE RECORDS SUMMARY | 2017-08-01 07:09 | External Medical Summary Rpt ---
[...] in 6:38 PM source source data data Boyd# 0.5 0.0 - x10(3)/ No No May [...]
== END 2017-07-30 15:00 | disposition home or self-care (01) ==
LOC: ER 19:06 → 2ND 20:04
PROVIDERS: Emergency Medicine; Family Medicine; Internal Medicine
PROC: B2111ZZ Fluoroscopy of Multiple Coronary Arteries using Low Osmolar Contrast (ICD-10-PCS; 2017-07-29)
PROC: B2151ZZ Fluoroscopy of Left Heart using Low Osmolar Contrast (ICD-10-PCS; 2017-07-29)
PROC: 027135Z Dilation of Coronary Artery, Two Arteries with Two Drug-eluting Intraluminal Devices, Percutaneous Approach (ICD-10-PCS; 2017-07-29)
PROC: 4A023N7 Measurement of Cardiac Sampling and Pressure, Left Heart, Percutaneous Approach (ICD-10-PCS; principal; 2017-07-29 10:15)
DX: I21.4 Non-ST elevation (NSTEMI) myocardial infarction (principal); R07.9 Chest pain, unspecified; I25.110 Atherosclerotic heart disease of native coronary artery with unstable angina pectoris; Z95.5 Presence of coronary angioplasty implant and graft; I10 Essential (primary) hypertension; Z86.73 Personal history of transient ischemic attack (TIA), and cerebral infarction without residual deficits; I25.2 Old myocardial infarction; M50.30 Other cervical disc degeneration, unspecified cervical region; M51.36 Other intervertebral disc degeneration, lumbar region; Z72.0 Tobacco use
CPT/HCPCS: C1725; C1769; C1876; G0378; J1644; Q9967

== ENCOUNTER → 2017-08-10 | Outpatient (CLI) | payer BC, MEDICARE ==
[~2017-08-10] MED LIST changes: +DIOVAN80 MG PO
--- NOTE | 2017-08-10 23:42 | RADIOLOGY REPORT PS360 ---
ARTERIAL/[id number] HISTORY: CLAUDICATION both legs with rest pain both legs. Not diabetic. PVD. Hyperlipidemia. Hypertension. TIA/CVA.. ME. Previous smoker. TECHNIQUE: Segmental pressures obtained of both right and left leg. These are compared to brachial blood pressure to yield index at each level sampled including summary CADENCE. The data sheets from the procedure are available in PACS FINDINGS Rest study only performed today No prior studies available for comparison. Blood pressures reported are in millimeters mercury. RIGHT LEG CADENCE = 1.1. Brachial BP: 145 Thigh BP: BP 156 with index 1.08 Calf BP: BP 154 with index 1.06 Ankle PT: BP 154 with index 1.06 Ankle DP : BP 136 with index 1.08 Digit =BP 121 with index 0.83 LEFT LEG CADENCE = 1.1 Brachial BP: 136 Thigh BP: BP 146 with index 1.101 Calf BP: BP 146 with index 1.01 Ankle PT:BP 155 with index 1.07 Ankle DP: BP 152 with index 1.05 Digit = BP 113 with index 0.78 Pulses and waveforms: Normal bilateral IMPRESSION: Right CADENCE = 1.1 Left CADENCE = 1.1 The ABIs WNL. Waveforms and pulses WNL
--- NOTE | 2017-08-10 23:42 | RADIOLOGY REPORT PS360 ---
ARTERIAL/[id number] HISTORY: CLAUDICATION both legs with rest pain both legs. Not diabetic. PVD. Hyperlipidemia. Hypertension. TIA/CVA.. DC. Previous smoker. TECHNIQUE: Segmental pressures obtained of both right and left leg. These are compared to brachial blood pressure to yield index at each level sampled including summary CADENCE. The data sheets from the procedure are available in PACS FINDINGS Rest study only performed today No prior studies available for comparison. Blood pressures reported are in millimeters mercury. RIGHT LEG CADENCE = 1.1. Brachial BP: 145 Thigh BP: BP 156 with index 1.08 Calf BP: BP 154 with index 1.06 Ankle PT: BP 154 with index 1.06 Ankle DP : BP 136 with index 1.08 Digit =BP 121 with index 0.83 LEFT LEG CADENCE = 1.1 Brachial BP: 136 Thigh BP: BP 146 with index 1.101 Calf BP: BP 146 with index 1.01 Ankle PT:BP 155 with index 1.07 Ankle DP: BP 152 with index 1.05 Digit = BP 113 with index 0.78 Pulses and waveforms: Normal bilateral IMPRESSION: Right CADENCE = 1.1 Left CADENCE = 1.1 The ABIs WNL. Waveforms and pulses WNL
== END ==
LOC: RT 07:55
DX: I70.213 Atherosclerosis of native arteries of extremities with intermittent claudication, bilateral legs (principal); I25.10 Atherosclerotic heart disease of native coronary artery without angina pectoris; I11.9 Hypertensive heart disease without heart failure; E78.5 Hyperlipidemia, unspecified; E66.9 Obesity, unspecified